=== PATIENT | female | born 1950 | race Caucasian/White ===

== ENCOUNTER 2022-10-03 13:38 | Outpatient (CLI) | payer MEDICARE, MEDICAID | END 2022-10-03 13:39 | disposition home or self-care (01) | LOC: ULT 13:38 | PROVIDERS: ATTEND Student in an Organized Health Care Education/Training Program | DX: R06.00 Dyspnea, unspecified (principal); I07.1 Rheumatic tricuspid insufficiency | CPT/HCPCS: 93306 ==

== ENCOUNTER 2023-02-20 11:49 | Outpatient (CLI) | payer MEDICARE, OTHER | END 2023-02-20 11:50 | disposition home or self-care (01) | LOC: ULT 11:49 | PROVIDERS: ATTEND Physician Assistant | DX: E04.1 Nontoxic single thyroid nodule (principal) | CPT/HCPCS: 76536 ==

== ENCOUNTER 2023-05-07 12:34 | Day surgery (SDC) | payer MEDICARE, MEDICAID ==
[2023-05-07] MEDS ORDERED: Sodium Bicarbonate 2.5 MEQ/5 ML VIAL ONE (12:46)
[2023-05-07] MEDS ORDERED: Lidocaine 1% PF 5 ML VIAL ONE (12:46)
[2023-05-07 15:10] VITALS: BP 167/86
== END 2023-05-07 14:15 | disposition home or self-care (01) ==
LOC: ULT 12:34
PROVIDERS: ATTEND Specialist
PROC: 0GBH3ZX Excision of Right Thyroid Gland Lobe, Percutaneous Approach, Diagnostic (ICD-10-PCS; principal; 2023-05-07)
DX: E04.1 Nontoxic single thyroid nodule (principal); I10 Essential (primary) hypertension; E66.01 Morbid (severe) obesity due to excess calories
CPT/HCPCS: 10005; 88173; 88305